=== PATIENT | female | born 1960 | race African-American/Black ===

== ENCOUNTER 2023-11-18 20:42 | Emergency (ER) | payer MEDICAID ==
[~2023-11-18] VITALS: Ht 167.6 cm; Wt 131.0 kg
[~2023-11-18 20:42] MED LIST: AMLO10TA80 PO; ASA; ATEN50TA PO; CARI350T27 PO; IBUP-2029 PO
[2023-11-18 21:13] VITALS: O2SAT 100
[2023-11-19] MEDS: CYCLOBENZAPRINE 10MG TABLET PO ONE (00:33)
[2023-11-19] MEDS: HYDROCODONE/ACETAMINOPHEN 5/325MG TABLET PO ONE (00:33)
[2023-11-19] MEDS ORDERED: NAPR-1176 MT (00:55)
[2023-11-19] MEDS ORDERED: LIDO700A15 TP (00:55)
[2023-11-19 01:14] VITALS: BP 130/89; PULSE 91; RESP 18; TEMP 97.8
[2023-11-19] MEDS ORDERED: CYCL10TA21 MT (01:16)
== END 2023-11-19 01:18 | disposition home or self-care (01) ==
LOC: ER 20:42
DX: G89.29 Other chronic pain (principal); M54.12 Radiculopathy, cervical region; E11.9 Type 2 diabetes mellitus without complications; I10 Essential (primary) hypertension
CPT/HCPCS: 99283; Z7610

== ENCOUNTER 2024-02-24 12:03 | Emergency (ER) | payer MEDICAID ==
[~2024-02-24] VITALS: Ht 167.6 cm; Wt 124.3 kg
[~2024-02-24 12:03] MED LIST changes: +CYCL10TA21 MT; +LIDO700A15 TP; +NAPR-1176 MT
[2024-02-24 12:06] VITALS: O2SAT 98
[2024-02-24] MEDS ORDERED: ACETAMINOPHEN 325MG TABLET PO NR (12:30)
[2024-02-24] MEDS: LIDOCAINE 5% PATCH TOP SCH (15:14)
[2024-02-24 17:13] VITALS: BP 148/90; PULSE 99; RESP 16; TEMP 98.3
== END 2024-02-24 17:51 | disposition home or self-care (01) ==
LOC: ER 12:03
DX: M54.2 Cervicalgia (principal); E11.9 Type 2 diabetes mellitus without complications; I10 Essential (primary) hypertension; Z98.890 Other specified postprocedural states; Z90.89 Acquired absence of other organs; V49.9XXA Car occupant (driver) (passenger) injured in unspecified traffic accident, initial encounter; Y93.89 Activity, other specified; Y92.89 Other specified places as the place of occurrence of the external cause; Y99.8 Other external cause status
CPT/HCPCS: 93005; 99291